=== PATIENT | male | born 1990 | race Caucasian/White ===

== ENCOUNTER 2019-12-14 19:57 | Emergency (ER) | payer BC, SELFPAY ==
[2019-12-14 20:04] VITALS: BP 165/114; PULSE 86; RESP 18; TEMP 36.1; O2SAT 100
--- NOTE | 2019-12-14 20:28 | ED.GENADULT ---
HPI - General Adult General Chief complaint: Recheck/Abnormal Lab/Rx Stated complaint: hi b/p, freq urination, blood in urine Time Seen by Provider: 12/14/19 20:13 Source: patient History of Present Illness HPI narrative: Patient is a 29 y/o male complaining of frequent urination and burning for 1-2 days. He denies any alleviating or exacerbating factor. He states that he went to urgent care and was told that he has blood in urine and his BP was extremely high. He has no gross blood in urine. He was then directed to be evaluated in ED. He has no fever, chill, flank pain or vomiting. Related Data Allergies Allergy/AdvReac Type Severity Reaction Status Date / Time No Known Allergies Allergy Verified 12/14/19 20:01 Review of Systems Constitutional: Constitutional: Denies chills, Denies fever(s), Denies headache(s) and Denies weakness Eyes: Eyes: Denies blurry vision ENT: Denies headache(s) and Denies neck pain Cardiovascular: Cardiovascular: Denies chest pain and Denies dyspnea Respiratory: Respiratory: Denies cough and Denies dyspnea Gastrointestinal: Gastrointestinal: Denies abdominal pain, Denies diarrhea, Denies nausea and Denies vomiting Genitourinary: Genitourinary: Denies hematuria, Reports dysuria, Reports urinary frequency and Reports urinary urgency Musculoskeletal: Musculoskeletal: Denies back pain and Denies neck pain Neurologic: Denies headache(s) and Denies weakness PMFSH Social History Social History Gender identity (if verbalized by the patient): Male Exam Const: General: no acute distress and well developed Orientation/consciousness: oriented to person, oriented to place, oriented to time and patient oriented x3 HENMT: Head: normocephalic Ears: external ears normal General nose exam: Normal external nose present Eyes: General: appearance normal, both eyes and all related structures Conjunctivae: conjunctivae normal Neck: Neck: normal visual inspection and full ROM Chest: Chest palpation & inspection: normal inspection of the chest and no tenderness Resp: Effort & Inspection: normal respiratory effort Auscultation: clear to auscultation bilaterally Cardio: Rate: regular rate Rhythm: regular rhythm GI: GI Palp: No abdominal tenderness and Yes Soft to palpation Skin: General skin exam: normal color and turgor normal Neuro: General: oriented to person, oriented to place, oriented to time and patient oriented x3 Cognition (Neuro): normal cognition Extrem: General: normal to inspection, full ROM and no pedal edema Psych: Appearance: grossly normal Mental Status: mental status grossly normal Affect: normal affect Course Vital Signs Vital signs: Vital Signs Temperature 36.1 C L 12/14/19 20:04 Pulse Rate 86 12/14/19 20:04 Respiratory Rate 18 12/14/19 20:04 Blood Pressure 165/114 H 12/14/19 20:04 Pulse Oximetry 100 12/14/19 20:04 Temperature 36.1 C L 12/14/19 20:04 Pulse Rate 85 12/15/19 00:00 Respiratory Rate 18 12/15/19 00:00 Blood Pressure 131/105 H 12/15/19 00:00 Pulse Oximetry 98 12/15/19 00:00 Medical Decision Making Vital Signs Vital Signs: Vital Signs Temperature 36.1 C L 12/14/19 20:04 Pulse Rate 86 12/14/19 20:04 Respiratory Rate 18 12/14/19 20:04 Blood Pressure 165/114 H 12/14/19 20:04 Pulse Oximetry 100 12/14/19 20:04 Temperature 36.1 C L 12/14/19 20:04 Pulse Rate 85 12/15/19 00:00 Respiratory Rate 18 12/15/19 00:00 Blood Pressure 131/105 H 12/15/19 00:00 Pulse Oximetry 98 12/15/19 00:00 Lab Data Result diagrams: 12/14/19 20:34 12/14/19 20:34 Labs: Lab Results 12/14/19 12/14/19 12/14/19 Range/Units 20:32 20:34 20:34 WBC 8.4 (4.5-10.0) K/mm3 RBC 4.64 (4.6-6.20) M/mm3 Hgb 14.0 (14.0-18.0) g/dL Hct 41.8 L (42.0-52.0) % MCV 90.1 (80-100) fl MCH 30.2 (26-34) pg MCHC 33.5
[2019-12-14 20:48] LABS: Basophils Absolute Auto 0.1 K/mm3 (0.0-0.1); Basophils Percent Auto 0.6 % (0.2-1.2); Eosinophils Absolute Auto 0.1 K/mm3 (0-0.3); Eosinophils Percent Auto 1.7 % (0-4.4); Hematocrit 41.8 % (42.0-52.0); Immature Granulocyte Absolute 0.07 K/mm3 (0.00-0.031); Immature Granulocyte Percent A 0.8 % (0-0.5); Lymphocytes Absolute Auto 2.31 K/mm3 (0.9-3.2); Lymphocytes Percent Auto 27.6 % (18.3-44.2); Mean Corpuscular HGB Conc 33.5 g/dl (32-36); Mean Corpuscular Hemoglobin 30.2 pg (26-34); Mean Corpuscular Volume 90.1 fl (80-100); Mean Platelet Volume 9.5 fl (7.4-10.4); Monocytes Absolute Auto 0.9 K/mm3 (0.1-0.6); Monocytes Percent Auto 10.4 % (2.6-8.5); Neutrophils Absolute Auto 4.9 K/mm3 (1.3-6.7); Neutrophils Percent Auto 58.9 % (45.5-73.1); Platelet Count Result 344 k/mm3 (150-375); Red Blood Count 4.64 M/mm3 (4.6-6.20); Red Cell Distribution Width 11.9 % (11.5-14.5); White Blood Count 8.4 K/mm3 (4.5-10.0)
[2019-12-14 20:52] LABS: Add Urine Microscopic? YES; Appearance Urine Clear (Clear); Bilirubin Urine Negative (Negative); Blood Urine 1+ (Negative); Color Urine Yellow (Yellow); Glucose Urine UA Negative (Negative); Ketones Urine Negative (Negative); Leukocyte Esterase Ur Negative LEU/UL (Negative); Mucus Urine Rare /lpf; Nitrate Urine Negative (Negative); Protein Urine Negative (Negative); RBC Urine 0-2 /hpf (0-2); Specific Grav Ur 1.021 (1.001-1.035); Urobilinogen Urine Negative mg/dL (<2.0); WBC Urine 0-3 /hpf
[2019-12-14 20:54] VITALS: BP 163/109; PULSE 81; RESP 18; O2SAT 96
[2019-12-14] MEDS: lisinopriL 20 MG TABLET PO (20:55)
[2019-12-14] MEDS: hydroCHLOROthiazide 25 MG TABLET PO (20:55)
[2019-12-14 20:59] LABS: Anion Gap 8 mmol/L (8-16); Blood Urea Nitrogen 18 mg/dL (9-20); Calcium 9.2 mg/dL (8.4-10.2); Carbon Dioxide 28 mmol/L (22-30); Chloride 102 mmol/L (98-107); Estimated CRCL calculation 121 ml/min; Estimated Glomerular Filt Rate > 60; Glucose 123 mg/dL (75-110); Potassium 3.9 mmol/L (3.4-5.0); Sodium 138 mmol/L (137-145)
[2019-12-14 21:29] LABS: Creatine Kinase 166 U/L (55-170)
[2019-12-14 21:33] VITALS: BP 153/109; PULSE 85; RESP 18; O2SAT 97
[2019-12-14 22:00] VITALS: BP 165/113; PULSE 96; RESP 18; O2SAT 100
[2019-12-14] MEDS: amLODIPine BESYLATE 5 MG TABLET 10 MG PO (22:38)
[2019-12-14 23:00] VITALS: BP 163/112; PULSE 86; RESP 18; O2SAT 98
[2019-12-15] VITALS: BP 131/105; PULSE 85; RESP 18; O2SAT 98
== END 2019-12-15 00:20 | disposition home or self-care (01) ==
PROVIDERS: Emergency Medicine; Emergency Provider Emergency Medicine
DX: I10 Essential (primary) hypertension (principal); R30.0 Dysuria
CPT/HCPCS: 36415; 80048; 81001; 82550; 85025; 87491; 87591; 99283; A9270

== ENCOUNTER 2019-12-22 10:56 | Outpatient (CLI) | payer BC, SELFPAY ==
--- NOTE | ~2019-12-22 | US_ITS ---
EXAMINATION: US renal BI DATE: 12/22/2019 12:13 INDICATION: Microscopic hematuria. TECHNIQUE: Multiple ultrasound grayscale images of the kidneys were obtained. COMPARISON: None. FINDINGS: The right kidney measures 11.7 x 4.5 x 6.2 cm. The left kidney measures 10.6 x 6.7 x 5.6 cm. The kidn eys demonstrate normal parenchymal echogenicity. There is no hydronephrosis. The bladder is normal. T here is diffuse hepatic steatosis. IMPRESSION: 1. Normal kidneys. No hydronephrosis. 2. Diffuse hepatic steatosis. Reviewed, dictated and finalized at location A.
== END 2019-12-22 10:57 | disposition home or self-care (01) ==
PROVIDERS: PCP Emergency Medicine; Visit Provider Emergency Medicine
DX: R31.29 Other microscopic hematuria (principal); K76.0 Fatty (change of) liver, not elsewhere classified
CPT/HCPCS: 76775